=== PATIENT | female | born 1960 | race Caucasian/White ===

== ENCOUNTER 2017-06-10 16:54 | Observation (INO) | payer OTHER ==
[~2017-06-10] VITALS: Ht 165.1 cm; Wt 70.3 kg
[~2017-06-10 16:54] MED LIST: BACTRIM DS TAB1 EACH PO; CEPHALEXIN 500500 M3 PO; IBUPROFEN 800800 M1 PO; PROGESTERO50 MG/1 M3 IM; TRAMADOL 50 MG50 MG PO; XANAX 0.25 MG0.25 MG PO
[2017-06-10 17:04] VITALS: BP 118/73
[2017-06-10 17:38] LABS: ABSOLUTE BASOPHILS 0.1 thou/uL (0.0-0.2); ABSOLUTE EOSINOPHILS 0.2 thou/uL (0.0-0.7); ABSOLUTE LYMPHOCYTES 2.9 thou/uL (0.8-5.3); ABSOLUTE MONOCYTES 0.8 thou/uL (0.0-1.2); BASOPHILS 1.4 %; EOSINOPHILS 2.7 %; HEMATOCRIT 40.6 % (37.0-47.0); HEMOGLOBIN 14.1 gm/dL (12.0-15.0); LYMPHOCYTES 31.7 %; MCH 31.6 pg (26.0-34.0); MCHC 34.7 g/dL (28.0-37.0); MCV 91.2 fL (80.0-100.0); MONOCYTES 8.7 %; MPV 8.4 fl. (7.2-11.1); NUCLEATED RBCS 0 /100WBC; PLATELET COUNT* 290 thou/uL (150-400); POLYS 55.5 %; RBC 4.45 mil/uL (4.20-5.00); RDW-CV 13.8 % (10.5-14.5)
[2017-06-10 17:49] LABS: ANION GAP 8 mmol/L (7-16); BUN 12 mg/dL (7-18); CALCIUM 9.3 mg/dL (8.5-10.1); CHLORIDE 103 mmol/L (98-107); CO2 27 mmol/L (21-32); CREATININE 0.8 mg/dL (0.6-1.3); GLUCOSE 102 mg/dL (70-99); POTASSIUM 3.7 mmol/L (3.5-5.1); SODIUM 138 mmol/L (136-145)
[2017-06-10 18:00] LABS: ALBUMIN 3.5 g/dL (3.4-5.0); ALKALINE PHOSPHATASE 51 U/L (46-116); NT-PRO BRAIN NAT PEPTIDE 27 pg/mL (<300); SGOT 17 U/L (15-37); SGPT 21 U/L (30-65); TOTAL BILIRUBIN 0.5 mg/dL (<0.1-1.0); TOTAL PROTEIN 6.8 g/dL (6.4-8.2); TROPONIN-I LEVEL <0.06 ng/mL (<0.06)
[2017-06-10 21:16] VITALS: BP 111/70
[2017-06-10 21:40] VITALS: BP 120/80
--- NOTE | 2017-06-10 23:02 | NUR ---
PATIENT ARRIVED TO UNIT 0 VIA CART ACCOUNT SUPPORT SPECIALIST FROM ED BEDSIDE REPORT RECEIVED. THE PATIENT IS ABLE TO AMBULATE FROM CART TO BED PRESENTLY RATES DISOMFORT AT 1 APPEARS A&O DAUGHTER AND SISTER ARE AT BEDSIDE DENIES OTHER CONCERNS PRESENTLY WILL CONTINUE TO MONITOR
[2017-06-10 23:36] LABS: URINE BILIRUBIN NEGATIVE (Negative); URINE BLOOD NEGATIVE (Negative); URINE CLARITY CLEAR; URINE COLOR YELLOW; URINE GLUCOSE-RANDOM NEGATIVE (Negative); URINE KETONES NEGATIVE (Negative); URINE LEUKOCYTES-REFLEX NEGATIVE (Negative); URINE NITRITE-REFLEX NEGATIVE (Negative); URINE PROTEIN NEGATIVE (Negative); URINE SPECIFIC GRAVITY <= 1.005 (1.005-1.030); URINE UROBILINOGEN 0.2 E.U./dl (0.2-1.0)
[2017-06-11] VITALS: BP 102/70
[2017-06-11 04:00] VITALS: BP 92/48
--- NOTE | 2017-06-11 06:09 | NUR ---
ASSUMED CARE OF PATIENT AT 2139 THE PATIENT REMAINS SR ON THE MONITOR O2 SAT MAINTAINED ON RA CONTINUES TO BE UP AD SKYLA THE ROUTINE ET PRN REGIMEN EFFECTIVE FOR SX MANAGEMENT SAFETY INTERVENTIONS INITIATED AND MAINTAINED BED LOWERED WHEELS LOCKED CALL LIGHT IN REACH SIDE RAILS UP X2 NIGHT UNEVENTFUL SISTER REMAINED AT BEDSIDE NO CONCERNS VOICED REPORT TO BE GIVEN TO ONCOMING RN
[2017-06-11 07:01] LABS: HEMATOCRIT 40.6 % (37.0-47.0); HEMOGLOBIN 14.1 gm/dL (12.0-15.0); MCH 31.5 pg (26.0-34.0); MCHC 34.6 g/dL (28.0-37.0); MPV 8.3 fl. (7.2-11.1); RBC 4.47 mil/uL (4.20-5.00); RDW-CV 13.6 % (10.5-14.5)
[2017-06-11 07:21] LABS: ALBUMIN 3.2 g/dL (3.4-5.0); CALCIUM 8.3 mg/dL (8.5-10.1); CREATININE 0.8 mg/dL (0.6-1.3); POTASSIUM 4.1 mmol/L (3.5-5.1); TOTAL BILIRUBIN 0.8 mg/dL (<0.1-1.0); TOTAL PROTEIN 6.5 g/dL (6.4-8.2)
[2017-06-11 08:00] VITALS: BP 90/55
[2017-06-11] MEDS ORDERED: PROTONIX40 M1 PO (09:50)
--- NOTE | 2017-06-11 10:12 | EKG ---
[place] [address] ELECTROCARDIOGRAM REPORT Name: ROD NAVA Room: [address]#: [id number] Admission: 06/10/17 Attend Phys: Kalyn Arias MD Discharge: Date of : 60 Report #: [id number] THIS REPORT FOR: //name// [facility] ED Test Date: 2017-06-10 Test Time: 17:02:21 Pat Name: ROD NAVA Department: Room: Gender: F Lounge Car Attendant: Seferino GAO : 1960 Requested By: Jojo Rios Order Number: [id number] MD: Gurdeep Araya Measurements Intervals [place] Rate: 54 P: 52 ND: 155 QRS: 67 QRSD: 102 T: 30 QT: 421 QTc: 399 Interpretive Statements Sinus rhythm No previous ECG available for comparison Electronically Signed On 06-11-2017 10:11:44 CDT by Gurdeep Araya [email or web address] <ELECTRONICALLY SIGNED> By: Amadeo Araya MD, [facility] 06/11/17 1011 D: [id number] Amadeo Araya MD, FAC /EPI
[2017-06-11 10:38] VITALS: BP 90/55
--- NOTE | 2017-06-11 11:10 | NUR ---
ASSUMED CARE OF PT AT 0735. PT A&O X4 CALM AND COOPERATIVE. PT HAS NO C/O PAIN OR DISTRESS, VSS ON ROOM AIR, TRACING SR IN THE 70'S ON THE MONITOR. PT DISCHARGED HOME SELF CARE. MEDICATIONS AND F/U CARE REVIEWED. PT VERBALIZED UNDERSTANDING OF DC INSTRUCTIONS. PT TOOK ALL PERSONAL BELONGINGS AND PRECRIPTIONS AT TIME OF DISCHARGE. PT VSS ON ROOM AIR, WITH NO C/O PAIN OR DISTRESS, SKIN W/D/I AT TIME OF DISCHARGE. IV AND MS SQL DEVELOPER REMOVED.
== END 2017-06-11 11:04 | disposition home or self-care (01) ==
LOC: M.ERS 16:54 → M.TBA-ER 18:48 → M.2W 21:40
PROVIDERS: Nurse Practitioner Family; ADMIT Internal Medicine
DX: R07.9 Chest pain, unspecified (principal); K21.9 Gastro-esophageal reflux disease without esophagitis; F41.9 Anxiety disorder, unspecified; R42 Dizziness and giddiness; Z87.891 Personal history of nicotine dependence; Z98.890 Other specified postprocedural states; Z90.710 Acquired absence of both cervix and uterus; Z85.51 Personal history of malignant neoplasm of bladder